=== PATIENT | female | born 1975 | race Caucasian/White ===

== ENCOUNTER 2017-06-20 10:15 | Emergency (ER) | payer OTHER ==
[~2017-06-20] VITALS: Ht 165.1 cm; Wt 59.8 kg
[2017-06-20] MEDS ORDERED: NAPROSYN500 MG PO (12:16)
[2017-06-20] MEDS ORDERED: FLEXERIL10 MG PO (12:16)
[2017-06-20 12:23] VITALS: BP 115/77
== END 2017-06-20 12:25 | disposition home or self-care (01) ==
LOC: EME 10:15
DX: S16.1XXA Strain of muscle, fascia and tendon at neck level, initial encounter (principal); R51 Headache; V49.40XA Driver injured in collision with unspecified motor vehicles in traffic accident, initial encounter; Y92.410 Unspecified street and highway as the place of occurrence of the external cause; F32.9 Major depressive disorder, single episode, unspecified; F17.200 Nicotine dependence, unspecified, uncomplicated
CPT/HCPCS: 70450; 72125; 99281; 99283; J1885